=== PATIENT | female | born 1985 | race Caucasian/White ===

== ENCOUNTER 2016-11-26 02:27 | Emergency (ER) | payer MEDICAID ==
[~2016-11-26] VITALS: Ht 162.6 cm; Wt 91.5 kg
[~2016-11-26 02:27] MED LIST: PRENAT PO
[2016-11-26 02:31] VITALS: Ht 162.6 cm; Wt 91.5 kg
[2016-11-26] MEDS ORDERED: SODI30SP2 NS (05:36)
[2016-11-26] MEDS ORDERED: ACET325T33 PO (05:36)
[2016-11-26 05:41] VITALS: BP 118/66; PULSE 70; RESP 20; TEMP 98.3
--- NOTE | 2016-11-26 05:41 | ERD ---
ER Documentation Chief Complaint Date/Time DATE: 11/26/16 TIME: 05:37 Chief Complaint cough x 1 antonia, 8 months , denies abd pain HPI This is a 31-year-old female who is 8 months presenting to the emergency room complaining of cough, nasal congestion and feeling warm for the past 1 week. Patient denies any abdominal pain, nausea, vomiting. She admits to having sore throat. She denies taking any medications for this. She denies shortness of breath and chest pain ROS All systems reviewed and are negative except as per history of present illness. Medications Home Meds Active Scripts Sodium Chloride (Saline Nasal [place]) 30 Ml [place], 1 SPR NS BID, #1 SPRAY Prov:PATRICIA ONEAL PA-C 11/26/16 Acetaminophen* (Tylenol*) 325 Mg Tablet, 2 TAB PO Q6 Y for PAIN AND OR ELEVATED TEMP, #20 TAB Prov:PATRICIA ONEAL PA-C 11/26/16 Multivit/Min/Fol Ac/Iron/Pren* ( S*) 1 Tab Tab, 1 TAB PO DAILY, #90 TAB Prov:WOLF PRABHAKAR MD 10/31/16 Allergies Allergies: Coded Allergies: No Known Allergy (Unverified , 11/08/14) PMhx/Soc History of Surgery: Yes (bunion removal 2005, gall bladder removal ) Anesthesia Reaction: No Hx Neurological Disorder: No Hx Respiratory Disorders: No Hx Cardiac Disorders: No Hx Psychiatric Problems: No Hx Miscellaneous Medical Probl: No Hx Alcohol Use: Yes (socially ) Hx Substance Use: No Hx Tobacco Use: No Smoking Status: Never smoker Physical Exam Vitals Vital Signs Date Time Temp Pulse Resp B/P Pulse Ox O2 Delivery O2 Flow Rate FiO2 11/26/16 02:31 98.6 98 20 123/64 99 Physical Exam GENERAL: well-developed/well-nourished, in no apparent distress, non-toxic appearing HEAD: NC/AT, no swelling noted in frontal or maxillary areas EARS: bilateral tympanic membrane is intact without erythema or effusion NARES: nares congested THROAT: oropharynx non-erythematous without exudates, no tonsil enlargement EYES: Conjunctiva normal NECK: Supple, no lymphadenopathy PULM: CTA bilaterally, no rales, rhonchi, or wheezing heard CV: Normal S1S2, RRR, good capillary refill GI: distended due to , normal bowel sounds, non-tender BACK: No midline tenderness, no masses EXT No clubbing, cyanosis, or edema NEURO: Alert and Orientated SKIN: Intact, normal turgor PSYCH: Normal mood and mentation Procedures/MDM This is a 31-year-old female who is 8 months presenting to the emergency room complaining of cough, nasal congestion and feeling warm for the past 1 week. This is likely due to a viral upper respiratory infection on examination patient was afebrile. Her lungs are clear to auscultation. I have a low suspicion for pneumonia, pleural effusion or pneumothorax. In addition patient is and the x-ray would be more harm than good at this point. There was no evidence of strep pharyngitis, otitis media. No evidence of bacterial sinusitis. I discussed with patient that she may take Tylenol for pain. I discussed to increase fluids and saline nasal rinses. Patient appears well and stable for discharge. I have given her strict precautions to return to the ER for any worsening signs or symptoms. Patient understands and agrees with this plan Departure Diagnosis: Primary Impression: URI (upper respiratory infection) URI type: unspecified viral URI Qualified Code: J06.9 - Viral upper respiratory tract infection Condition: Stable Patient Instructions: Preventing Common Respiratory Infections, Uri, Viral, No Abx (Adult) Additional Instructions: FOLLOW UP WITH YOUR PRIMARY CARE PHYSICIAN TOMORROW.Return to this facility if you are not improving as expected. Take all medicines as directed. Return to this facility if you are not improving as expected. PATRICIA ONEAL PA-C Nov 26, 2016 05:41
== END 2016-11-26 05:42 | disposition home or self-care (01) ==
LOC: FTE 02:27
DX: O99.513 Diseases of the respiratory system complicating pregnancy, third trimester (principal); J06.9 Acute upper respiratory infection, unspecified; Z3A.32 32 weeks gestation of pregnancy
CPT/HCPCS: 99283